=== PATIENT | female | born 1940 | race Caucasian/White ===

== ENCOUNTER 2017-06-11 09:37 | Day surgery (SDC) | payer MEDICARE ==
[~2017-06-11 09:37] MED LIST: CALCIUM CITRATE +D; LOSARTAN POT50 MG PO
[2017-06-11 10:32] LABS: ACT PARTIAL THROMBO TIME 25.2 SECONDS (20.0-32.5); PROTHROMBIN TIME 10.7 SECONDS (9.0-12.5)
[2017-06-11] MEDS ORDERED: KEFLEX500 M1 PO (12:50)
[2017-06-11] MEDS ORDERED: HYDROCODONE/ACE1 TAB PO (12:50)
[2017-06-11] MEDS ORDERED: ECOTRIN LOW STR81 MG PO (12:52)
[2017-06-11 13:32] VITALS: BP 139/62
== END 2017-06-11 13:39 | disposition home or self-care (01) ==
LOC: ORM 09:37
PROVIDERS: ATTEND Podiatrist Foot & Ankle Surgery
PROC: 0SBF4ZZ Excision of Right Ankle Joint, Percutaneous Endoscopic Approach (ICD-10-PCS; principal; 2017-06-11)
PROC: 0QBG4ZZ Excision of Right Tibia, Percutaneous Endoscopic Approach (ICD-10-PCS; 2017-06-11)
DX: M25.871 Other specified joint disorders, right ankle and foot (principal); M24.671 Ankylosis, right ankle; M77.51 Other enthesopathy of right foot and ankle